=== PATIENT | male | born 1940 | race Caucasian/White ===

== ENCOUNTER → 2016-11-19 | Outpatient (CLI) | payer MEDICARE, OTHER ==
[~2016-11-19] MED LIST: COLACE 100100 MG/CAP PO; FLOMAX 0.40.4 MG/CAP PO; LOTENSIN20 MG PO; NORCO 325 MG-51 TAB PO; NORVASC 10MG10 MG PO; PYRIDIUM200 M1 PO; ZOCOR 10MG10 MG PO
== END ==
LOC: COL.RAD 09:07
DX: C61 Malignant neoplasm of prostate (principal); M19.90 Unspecified osteoarthritis, unspecified site
CPT/HCPCS: A9503

== ENCOUNTER 2017-02-01 14:03 | Emergency (ER) | payer MEDICARE, OTHER ==
[~2017-02-01] VITALS: Ht 175.3 cm; Wt 90.9 kg
[2017-02-01 14:05] VITALS: BP 143/78; TEMP 99.5
[2017-02-01] MEDS ORDERED: NORCO 325 MG-51 TAB PO (16:32)
[2017-02-01 16:45] VITALS: PULSE 77
== END 2017-02-01 16:45 | disposition home or self-care (01) ==
LOC: COL.ER 14:03
DX: S09.90XA Unspecified injury of head, initial encounter (principal); S39.012A Strain of muscle, fascia and tendon of lower back, initial encounter; Z85.46 Personal history of malignant neoplasm of prostate; W55.22XA Struck by cow, initial encounter

== ENCOUNTER 2018-04-08 05:52 | Day surgery (SDC) | payer MEDICARE, OTHER ==
[~2018-04-08] VITALS: Ht 177.8 cm; Wt 87.6 kg
[2018-04-08 06:17] VITALS: BP 139/81; PULSE 67; TEMP 97.6
[2018-04-08] MEDS ORDERED: TYLENOL 500MG500 MG PO (06:30)
[2018-04-08 09:20] VITALS: BP 141/58; PULSE 55
--- NOTE | 2018-04-08 09:20 | NUR ---
Patient returns to room 8 per cart from PACU and is awake and alert. Temp 97.8 and room air sats 95%. IV fluids infusing and site is free of redness. Siderails up x2 and call light in reach. Denies pain or nausea. Patient assisted up to the bathroom and is able to void and returns to room. States urine was blood-tinged.
[2018-04-08 09:35] VITALS: BP 148/66; PULSE 56
[2018-04-08] MEDS ORDERED: PYRIDIUM 100MG100 MG PO (09:35)
--- NOTE | 2018-04-08 09:35 | NUR ---
Patient is drinking water and denies pain or nausea.
[2018-04-08 09:50] VITALS: BP 137/72; PULSE 61
--- NOTE | 2018-04-08 09:50 | NUR ---
Eating toast and drinking coffee.
[2018-04-08 09:51] VITALS: TEMP 98.2
[2018-04-08 10:05] VITALS: BP 132/69; PULSE 65
--- NOTE | 2018-04-08 10:05 | NUR ---
Patient requests to get dressed. Denies pain or nausea. Tolerated toast and coffee.
--- NOTE | 2018-04-08 10:30 | NUR ---
Patient given dismissal instructions and provided follow up appointment card and script for Pyridium. IV discontinued and site free of redness. Patient dressed self and did return to the bathroom. States urine was less bloody.
--- NOTE | 2018-04-08 10:41 | NUR ---
Patient dismissed to home driven by spouse with dismissal instructions in hand. Taken to the front door per wheelchair and assisted into car.
== END 2018-04-08 10:41 | disposition home or self-care (01) ==
LOC: SDCO 05:52
DX: N20.1 Calculus of ureter (principal); N40.1 Benign prostatic hyperplasia with lower urinary tract symptoms; R39.12 Poor urinary stream; R31.9 Hematuria, unspecified; Z85.46 Personal history of malignant neoplasm of prostate; I10 Essential (primary) hypertension; E78.5 Hyperlipidemia, unspecified; Z79.899 Other long term (current) drug therapy; Z92.3 Personal history of irradiation
CPT/HCPCS: C1769; C2617; J0690; J1100; J1885; J2405; J2704; J3010; J7120